=== PATIENT | female | born 1945 | race Two or more races ===

== ENCOUNTER 2021-05-25 14:35 | Outpatient (CLI) | payer OTHER ==
[~2021-05-25 14:35] MED LIST: CLARITIN-D 121 EACH PO; SORBUTUSS LIQU473 ML PO; SYNTHROID50 MCG; TESSALON200 MG PO
== END 2021-05-25 14:38 | disposition home or self-care (01) ==
LOC: NUCLEAR 14:35
PROVIDERS: ATTEND Orthopaedic Surgery
DX: M85.89 Other specified disorders of bone density and structure, multiple sites (principal); M48.062 Spinal stenosis, lumbar region with neurogenic claudication; M54.16 Radiculopathy, lumbar region